=== PATIENT | female | born 1960 | race Caucasian/White ===

== ENCOUNTER 2018-06-02 06:37 | Day surgery (SDC) | payer OTHER ==
[2018-05-23 14:23] VITALS: BMI 29.9
[2018-06-02] MEDS ORDERED: BUPIVACAINE HCL/EPINEPHRINE/PF 30 ML VIAL IJ ONE (07:05)
[2018-06-02] MEDS ORDERED: SUCCINYLCHOLINE CHLORIDE 200 MG/10 ML VIAL ONE (07:44)
[2018-06-02] MEDS ORDERED: MIDAZOLAM HCL 2 MG/2 ML SINGLE DOSE VIAL ONE (07:44)
[2018-06-02] MEDS ORDERED: PROPOFOL 20 ML ONE ×3 (07:44)
[2018-06-02] MEDS ORDERED: oxyCODONE HCL 5 MG TABLET PO PRN ×2 (08:36)
[2018-06-02] MEDS ORDERED: ONDANSETRON 4 MG/2 ML VIAL IVPUSH PRN (08:36)
[2018-06-02] MEDS ORDERED: PROMETHAZINE HCL 25 MG/1 ML VIAL IVPUSH PRN (08:36)
[2018-06-02] MEDS ORDERED: ASPIRIN 81 MG CHEWABLE TABLETS PO ONE (08:53)
--- NOTE | 2018-06-02 08:57 | OP ---
Operative Note - Note: Operative Date: 06/02/18 Pre-Operative Diagnosis: right knee MMT, LMT (Flap tears) Operation: RKA, PLM,PMM Post-Operative Diagnosis: Same as Pre-op Surgeon: Alfredo Vivas Anesthesia: Local Operative Report Dictated: Yes
--- NOTE | 2018-06-02 08:57 | DS ---
Physical Examination Vital Signs: Vital Signs Temperature 98.6 F 06/02/18 07:15 Pulse Rate 68 06/02/18 07:15 Respiratory Rate 18 06/02/18 07:15 Blood Pressure 116/61 06/02/18 07:15 O2 Sat by Pulse Oximetry (%) 96 06/02/18 07:15 Discharge Summary Reason For Visit: MEDIAL MENISCAL TEAR RIGHT KNEE Condition: Good - Instructions Diet, Activity, Other Instructions: Post Operative Instructions: Knee Arthroscopy Dr Alfredo Vivas 1. Pain following an arthroscopy is variable. Some patients will have more pain than others. You have been provided with a prescription for medication that contains a narcotic. You are not allowed to drive while on this medication. You should NOT take Tylenol (Acetaminophen) when taking the pain medication ( it will result in an overdose). Feel free to take medications such as Ibuprofen or Naprosyn in addition to the pain medicine if you do not have any problems with the NSAID class of medications. Take Aspirin 81mg twice a day for 10 days to try and prevent blood clots. 2. You are allowed to remove the bandages and shower in 24 hours unless directed otherwise. You are not allowed to bathe or go swimming until the sutures are removed. Put band-aids on the sutures after your shower and do not put any creams or lotions over the incisions. 3. You are allowed to put all your weight on the leg and bend your knee. As discussed, You MUST be out of bed and walking around. 4. Apply ice to the knee for 15 min every hour or so. You may continue this for as many days as you like. 5. Please call the office to schedule a visit to have your sutures removed. 6. If for any reason you believe you may have an infection or are concerned, please feel free to call me. I can be reached through our office number 24 hours a day. 7. Please call our office with any questions; we will review the surgical findings during your post operative visit. Disposition: HOME - Home Medications Comprehensive Discharge Medication List: Ambulatory Orders Cholecalciferol (Vitamin D3) [Vitamin D] 2,000 unit PO DAILY 05/23/18 Meloxicam 7.5 mg PO DAILY PRN 05/23/18 [place]-3 Fatty Acids [[place]-3] 1,000 mg PO DAILY 05/23/18
[2018-06-02] MEDS ORDERED: ceFAZolin SODIUM 1 GM VIAL ONE (09:13)
[2018-06-02] MEDS ORDERED: DEXAMETHASONE SOD PHOSPHATE 4 MG/1 ML VIAL ONE (09:13)
[2018-06-02] MEDS ORDERED: KETOROLAC TROMETHAMINE 30 MG/1 ML VIAL ONE (09:13)
[2018-06-02 09:19] VITALS: TEMP 97.3
[2018-06-02 10:25] VITALS: PULSE 62
[2018-06-02] MEDS ORDERED: oxyCODONE HCL 5 MG TABLET ONE (10:28)
[2018-06-02 11:24] VITALS: BP 111/68
== END 2018-06-02 11:10 | disposition home or self-care (01) ==
LOC: FASU 06:37
PROVIDERS: ATTEND Orthopaedic Surgery
PROC: 0SBC4ZZ Excision of Right Knee Joint, Percutaneous Endoscopic Approach (ICD-10-PCS; 2018-06-02)
PROC: 0SBC4ZZ Excision of Right Knee Joint, Percutaneous Endoscopic Approach (ICD-10-PCS; principal; 2018-06-02 08:06)
DX: S83.241A Other tear of medial meniscus, current injury, right knee, initial encounter (principal); S83.281A Other tear of lateral meniscus, current injury, right knee, initial encounter; X58.XXXA Exposure to other specified factors, initial encounter; Y93.9 Activity, unspecified; Y92.9 Unspecified place or not applicable
CPT/HCPCS: 94760